=== PATIENT | female | born 1955 ===

== ENCOUNTER 2016-06-25 16:12 | Emergency (ER) | payer OTHER ==
[2016-06-25 16:19] VITALS: RESP 16; O2SAT 100
[2016-06-25 17:22] LABS: BASO % 0.7 % (0.0-2.0); EOS % 0.5 % (0.0-4.0); HEMATOCRIT 40.2 % (34.0-47.0); LYMPH # 1.4 K/uL (1.0-4.3); LYMPH % 18.5 % (20.0-40.0); MEAN CELL VOLUME 88.2 fl (81.0-99.0); MEAN CORPUSCULAR HEMOGLOBIN 29.1 pg (27.0-31.0); MONO # 0.4 K/uL (0.0-0.8); MONO % 5.9 % (0.0-10.0); NEUT # 5.6 K/uL (1.8-7.0); NEUT % 74.4 % (50.0-75.0); RED CELL DISTRIBUTION WIDTH 13.9 % (11.5-14.5); WHITE BLOOD COUNT 7.5 K/uL (4.8-10.8)
--- NOTE | 2016-06-25 17:23 | ED PDOC ---
HPI: Abdomen Time Seen by Provider: 06/25/16 16:32 Chief Complaint (Nursing): Abdominal Pain Chief Complaint (Provider): Abdominal Pain History Per: Patient History/Exam Limitations: no limitations Onset/Duration Of Symptoms: Days Current Symptoms Are (Timing): Still Present Severity: Mild Location Of Pain/Discomfort: RUQ Quality Of Discomfort: "Pain" Associated Symptoms: Chills, Nausea, Vomiting, Diarrhea, Loss Of Appetite. denies: Fever Exacerbating Factors: None Alleviating Factors: None Additional Complaint(s): Patient is a 61 year old female who presents to ED for evaluation of right sided abdominal pain, intermittent for 3 weeks. Patient notes pain is more severe in the last 2 days, associated now with vomiting (non bloody and non bilious) diarrhea (non bloody)and poor appetite. Patient reports that this morning she had 2 syncopal episodes, both in the bathroom while vomiting. As per , patient syncopized the first time for 30 seconds and the second for only a few seconds. Patient also complaining of dizziness, lightheadedness and chills. Denies urinary changes or fever. Past Medical History Reviewed: Historical Data Vital Signs: Last Vital Signs Temp 98.1 F 06/25/16 21:28 Pulse 75 06/25/16 21:28 Resp 16 06/25/16 21:28 BP 125/80 06/25/16 21:28 Pulse Ox 100 06/25/16 21:28 - Medical History PMH: Asthma Denies: HTN (Patient denies although previous chart show HTN history) - Surgical History Other surgeries: tubleligation - Family History Family History: States: Unknown Family Hx - Living Arrangements Living Arrangements: With Family - Home Medications Home Medications: Ambulatory Orders Medication Instructions Recorded traMADol [Ultram] 50 mg PO Q6H PRN #15 tab 09/09/14 Dicyclomine [Bentyl] 20 mg PO BID PRN #30 tab 06/25/16 Omeprazole Magnesium [Prilosec Otc] 20 mg PO DAILY #30 tcp 06/25/16 - Allergies Allergies/Adverse Reactions: Allergies Allergy/AdvReac Type Severity Reaction Status Date / Time ketorolac Allergy RASH Verified 06/25/16 16:16 Review of Systems ROS Statement: Except As Marked, All Systems Reviewed And Found Negative Constitutional: Positive for: Chills. Negative for: Fever Cardiovascular: Negative for: Chest Pain, Palpitations Respiratory: Negative for: Shortness of Breath Gastrointestinal: Positive for: Nausea, Vomiting, Abdominal Pain, Diarrhea. Negative for: Hematochezia, Hematemesis Genitourinary Female: Negative for: Dysuria, Frequency, Hematuria Musculoskeletal: Negative for: Back Pain Skin: Negative for: Rash Neurological: Positive for: Dizziness. Negative for: Weakness, Numbness Physical Exam - Reviewed Nursing Documentation Reviewed: Yes Vital Signs Reviewed: Yes - Physical Exam Appears: Positive for: Non-toxic (tired appearing), No Acute Distress Skin: Positive for: Normal Color, Warm Eye Exam: Positive for: Normal appearance Neck: Positive for: Normal, Painless ROM Cardiovascular/Chest: Positive for: Regular Rate, Rhythm. Negative for: Murmur Respiratory: Positive for: Normal Breath Sounds. Negative for: Respiratory Distress Gastrointestinal/Abdominal: Positive for: Soft, Tenderness (RUQ (-) [place] ). Negative for: Distended, Guarding, Rebound Back: Positive for: Normal Inspection. Negative for: L CVA Tenderness, R CVA Tenderness Extremity: Positive for: Normal ROM Neurologic/Psych: Positive for: Alert, Oriented - Laboratory Results Result Diagrams: 06/25/16 16:50 06/25/16 16:50 - ECG O2 Sat by Pulse Oximetry: 100 (RA) Pulse Ox Interpretation: Normal Medical Decision Making Medical Decision Making: Time:1630 Impression: Abdominal pain Differential diagnosis: cholelithiasis, cholecystitis, hepatitis, pancreatitis, dehydration, electrolyte abnormality. Plan: -- EKG -- CMP -- Lact acid -- Lipase -- Magnesium -- Phosphorous -- Troponin -- Urine dip -- CBC -- PT/PTT -- Zofran -- Urine culture -- monitoring analyst -- Accucheck -- U/A -- U/S Labs unremarkable. Accession No. : [id number] Patient Name / ID : MELISSA PERSON / [id number] Exam Date : 06/25/2016 17:20:14 ( Approved ) Study Comment : Sex / Age : F / 61Y Creator : Nikolai Fink MD Dictator : Nikolai Fink MD Soldering Machine Tender : Center Administrator : Nikolai Fink MD Approver2 : Report Date : 06/25/2016 18:44:12 My Comment : HISTORY: abdominal pain COMPARISON: None. TECHNIQUE: Sonographic evaluation of the abdomen. FINDINGS: LIVER: Measures cm. Increased echogenicity of the liver parenchyma. Focal area of fatty sparing near the melodie hepatis measuring 4 centimeters. GALLBLADDER: Unremarkable. No gallstones. COMMON BILE DUCT: Measures mm. No stones. No dilatation. PANCREAS: Unremarkable as visualized. No mass. No ductal dilatation. RIGHT KIDNEY: Measures cm. Normal echogenicity. No calculus, mass, or hydronephrosis. LEFT KIDNEY: Measures cm. Normal echogenicity. No calculus, mass, or hydronephrosis. SPLEEN: Normal in size and contour. No mass. AORTA: No aneurysmal dilatation. IVC: Unremarkable. OTHER FINDINGS: None. IMPRESSION: Fatty liver. EXAM: CT Abdomen and Pelvis With Intravenous Contrast CLINICAL HISTORY: 61 years old, female; Pain; Abdominal pain; Localized; Right; Prior surgery; Surgery date: 6+ months; Surgery type: Tubal ligation; Additional info: Right sided abdominal pain TECHNIQUE: Axial computed tomography images of the abdomen and pelvis with intravenous contrast. This CT exam was performed using one or more of the following dose reduction techniques : automated exposure control, adjustment of the mA and/or kV according to patient size, and/ or use of iterative reconstruction technique. Coronal and sagittal reformatted images were created and reviewed. CONTRAST: 90 mL of [id number] administered intravenously. EXAM DATE/TIME: 06/25/2016 7:31 PM COMPARISON: US - ABDOMEN COMPLETE 06/25/2016 5:20:14 PM FINDINGS: Lower thorax: No acute findings. ABDOMEN: Liver: The liver is diffusely decreased in density, compatible with hepatic steatosis. Gallbladder and bile ducts: The gallbladder is unremarkable. No biliary ductal dilatation. Pancreas: The pancreas is unremarkable. Spleen: The spleen is unremarkable. Adrenals: The adrenal glands are unremarkable. Kidneys and ureters: Symmetric renal enhancement without hydronephrosis. Right renal subcentimeter hypodensity is too small to characterize. Stomach and bowel: No evidence of bowel obstruction. No pericolonic inflammatory stranding. Appendix: A normal appendix is identified. PELVIS: Bladder: No focal wall thickening of the urinary bladder. Reproductive: Uterus is unremarkable. No suspicious adnexal lesion seen. ABDOMEN and PELVIS: Intraperitoneal space: No significant peritoneal free fluid. No free peritoneal air. Bones/joints: No acute osseous abnormality. Soft tissues: There is a small fat-containing umbilical hernia. Vasculature: No acute findings. No abdominal aortic aneurysm. Lymph nodes: No enlarged lymph nodes. IMPRESSION: No acute findings. Thank you for allowing us to participate in the care of your patient. Dictated and Authenticated by: Shay Lozano MD 06/25/2016 8:07 PM Eastern Time ([place] & [place]) On reevaluation pt feeling better. DW pt findings and plan of care. She has appointment with Dr Salinas Saturday. Advised bland diet with fluid and symptomatic meds until reeval with PMD. Scribe Attestation: Documented by Claudia Zuñiga acting as a scribe for Nicole Rizzo MD. Scribe Attestation: All medical record entries made by the Scribe were at my direction and personally dictated by me. I have reviewed the chart and agree that the record accurately reflects my personal performance of the history, physical exam, medical decision making, and the department course for this patient. I have also personally directed, reviewed, and agree with the discharge instructions and disposition. Disposition - Clinical Impression Clinical Impression: Abdominal pain Counseled Patient/Family Regarding: Studies Performed - Disposition Referrals: Conrad Salinas MD [Staff Provider] - Disposition: Routine/Home Disposition Time: 21:00 Condition: GOOD Additional Instructions: BLANDITO COMIDO Y BASHIR MUCHOS LIQUIDOS AYLA MEDICINAS A RECETO Prescriptions: Dicyclomine [Bentyl] 20 mg PO BID PRN #30 tab PRN Reason: abdominal pain Omeprazole Magnesium [Prilosec Otc] 20 mg PO DAILY #30 tcp Instructions: Acute Abdominal Pain (ED) Forms: [facility] ED School/Work Excuse Print Language: DOMINICAN
[2016-06-25 17:32] LABS: ALB/GLOB RATIO 1.3 (1.0-2.1); ALKALINE PHOSPHATASE 77 U/L (38-126); ALT/SGPT 40 U/L (9-52); AST/SGOT 30 U/L (14-36); BILIRUBIN,TOTAL 1.7 mg/dl (0.2-1.3); BLOOD UREA NITROGEN 14 mg/dl (7-17); CALCIUM 9.5 mg/dL (8.4-10.2); CARBON DIOXIDE 23 mmol/L (22-30); CHLORIDE 107 mmol/L (98-107); GFR AFRICAN-AMERICAN > 60; GLUCOSE,RANDOM 98 mg/dL (65-105); LIPASE 82 U/L (23-300); PHOSPHOROUS 3.7 mg/dl (2.5-4.5); POTASSIUM 3.8 MMOL/L (3.6-5.0); SODIUM 141 mmol/l (132-148); TOTAL PROTEIN 7.2 G/DL (6.3-8.2)
[2016-06-25 17:37] LABS: PARTIAL THROMBOPLASTIN TIME 24.7 SECONDS (23.3-32.5)
[2016-06-25 17:41] LABS: URINE BILIRUBIN NEGATIVE (NEGATIVE); URINE BLOOD NEGATIVE (NEGATIVE); URINE COLOR YELLOW (YELLOW); URINE GLUCOSE (UA) NEG (Normal); URINE KETONE NEGATIVE (NEGATIVE); URINE LEUKOCYTE ESTERASE TRACE Leu/uL (Negative); URINE PROTEIN NEGATIVE (NEGATIVE); URINE UROBILINOGEN 0.2-1.0 mg/dL (0.2-1.0); WBC URINE 5 /hpf (0-5)
--- NOTE | 2016-06-25 18:45 | US ---
HISTORY: abdominal pain COMPARISON: None. TECHNIQUE: Sonographic evaluation of the abdomen. FINDINGS: LIVER: Measures cm. Increased echogenicity of the liver parenchyma. Focal area of fatty sparing near the melodie hepatis measuring 4 centimeters. GALLBLADDER: Unremarkable. No gallstones. COMMON BILE DUCT: Measures mm. No stones. No dilatation. PANCREAS: Unremarkable as visualized. No mass. No ductal dilatation. RIGHT KIDNEY: Measures cm. Normal echogenicity. No calculus, mass, or hydronephrosis. LEFT KIDNEY: Measures cm. Normal echogenicity. No calculus, mass, or hydronephrosis. SPLEEN: Normal in size and contour. No mass. AORTA: No aneurysmal dilatation. IVC: Unremarkable. OTHER FINDINGS: None. IMPRESSION: Fatty liver.
[2016-06-25] MEDS ORDERED: Sodium Chloride 0.9% 50 ML IV ONE (19:19)
[2016-06-25] MEDS ORDERED: Iohexol 300 100 ML IJ ONE (19:19)
[2016-06-25 21:29] VITALS: BP 125/80; PULSE 75; TEMP 98.1
--- NOTE | 2016-06-26 07:17 | CARD ---
APPROVED REPORT EKG Measurement Heart [id number] <Conclusion> Sinus bradycardia Otherwise normal ECG
--- NOTE | 2016-06-26 10:47 | CT ---
PROCEDURE: CT Abdomen and Pelvis with contrast HISTORY: RIGHT sided abdominal pain COMPARISON: None. TECHNIQUE: Axial and reformatted coronal and sagittal CT images lumen pelvis were obtained after IV contrast administration. Contrast dose: 90 mL of Omnipaque 300 Radiation dose: Total exam DLP = 476.7 mGy-cm. This CT exam was performed using one or more of the following dose reduction techniques: Automated exposure control, adjustment of the mA and/or kV according to patient size, and/or use of iterative reconstruction technique. FINDINGS: LOWER THORAX: Unremarkable. LIVER: Unremarkable. No gross lesion or ductal dilatation. GALLBLADDER AND BILE DUCTS: Unremarkable. PANCREAS: Unremarkable. No gross lesion or ductal dilatation. SPLEEN: Unremarkable. ADRENALS: Unremarkable. No mass. KIDNEYS AND URETERS: Unremarkable. No hydronephrosis. No solid mass. VASCULATURE: Unremarkable. No aortic aneurysm. BOWEL: Unremarkable. No obstruction. No gross mural thickening. APPENDIX: Normal appendix. PERITONEUM: Unremarkable. No free fluid. No free air. LYMPH NODES: Unremarkable. No enlarged lymph nodes. BLADDER: Unremarkable. REPRODUCTIVE: Unremarkable. BONES: No acute fracture. OTHER FINDINGS: None. IMPRESSION: No CT evidence of acute pathology in the abdomen and pelvis. Preliminary report was submitted by virtual Radiology.
== END 2016-06-25 21:29 | disposition home or self-care (01) ==
LOC: H.ER 16:12
DX: B96.89 Other specified bacterial agents as the cause of diseases classified elsewhere (principal); K42.9 Umbilical hernia without obstruction or gangrene; K76.0 Fatty (change of) liver, not elsewhere classified; R11.2 Nausea with vomiting, unspecified; R42 Dizziness and giddiness; I10 Essential (primary) hypertension

== ENCOUNTER 2017-01-21 10:17 | Observation (INO) | payer BC, OTHER ==
[2017-01-21] MEDS ORDERED: Sodium Chloride 0.9% 1,000 ML IV STA (10:37)
[2017-01-21 10:58] LABS: BASO # 0.1 K/uL (0.0-0.2); BASO % 0.8 % (0.0-2.0); EOS % 0.7 % (0.0-4.0); HEMATOCRIT 38.7 % (34.0-47.0); LYMPH # 2.5 K/uL (1.0-4.3); LYMPH % 33.5 % (20.0-40.0); MEAN CELL VOLUME 87.3 fl (81.0-99.0); MEAN CORPUSCULAR HGB CONC 33.2 g/dL (33.0-37.0); MEAN PLATELET VOLUME 9.9 fl (7.2-11.7); MONO # 0.5 K/uL (0.0-0.8); MONO % 7.2 % (0.0-10.0); NEUT # 4.2 K/uL (1.8-7.0); NEUT % 57.8 % (50.0-75.0); NRBC % 0.1 % (0.0-0.0); PARTIAL THROMBOPLASTIN TIME 29.3 Seconds (25.6-37.1); RED CELL DISTRIBUTION WIDTH 13.6 % (11.5-14.5); WHITE BLOOD COUNT 7.3 K/uL (4.8-10.8)
[2017-01-21 11:07] LABS: ALB/GLOB RATIO 1.5 (1.0-2.1); ALKALINE PHOSPHATASE 64 U/L (38-126); ALT/SGPT 35 U/L (9-52); AST/SGOT 20 U/L (14-36); BILIRUBIN,TOTAL 1.7 mg/dl (0.2-1.3); BLOOD UREA NITROGEN 18 mg/dl (7-17); CALCIUM 9.2 mg/dL (8.4-10.2); CARBON DIOXIDE 25 mmol/L (22-30); CHLORIDE 108 mmol/L (98-107); GFR AFRICAN-AMERICAN > 60; GLUCOSE,RANDOM 123 mg/dL (65-105); POTASSIUM 3.5 MMOL/L (3.6-5.0); SODIUM 143 mmol/l (132-148); TOTAL PROTEIN 6.9 G/DL (6.3-8.2)
[2017-01-21] MEDS ORDERED: Potassium Chloride 20 mEq ER Tab PO STA (11:12)
--- NOTE | 2017-01-21 11:16 | ED PDOC ---
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 Patient sat on a chair and witnesses report the patient had a blank stare on her face. RESEARCH TECH was called and the patient was brought to the ER for evaluation. Upon interview, patient states she felt as if the room was spinning and feels generalized weakness. She reports she remembers the entire incident. She denies any headache, chest pain, shortness of breath, paresthesias, focal weaknesses. Patient has no other medical complaints. Past Medical History Reviewed: Historical Data, Nursing Documentation, Vital Signs Vital Signs: Last Vital Signs Temp 98.2 F 01/21/17 10:23 Pulse 80 01/21/17 10:23 Resp 16 01/21/17 10:23 BP 78/41 L 01/21/17 10:23 Pulse Ox 100 01/21/17 10:23 - Medical History PMH: Asthma Denies: HTN (Patient denies although previous chart show HTN history) - Surgical History Surgical History: No Surg Hx - Family History Family History: States: No Known Family Hx, Unknown Family Hx - Social History Current smoker - smoking cessation education provided: No Ex-Smoker (has not smoked in the last 12 months): No Alcohol: None Drugs: Denies - Home Medications Home Medications: Ambulatory Orders Medication Instructions Recorded traMADol [Ultram] 50 mg PO Q6H PRN #15 tab 09/09/14 Dicyclomine [Bentyl] 20 mg PO BID PRN #30 tab 06/25/16 Omeprazole Magnesium [Prilosec Otc] 20 mg PO DAILY #30 tcp 06/25/16 - Allergies Allergies/Adverse Reactions: Allergies Allergy/AdvReac Type Severity Reaction Status Date / Time ketorolac Allergy RASH Verified 06/25/16 16:16 Review of Systems ROS Statement: Except As Marked, All Systems Reviewed And Found Negative Cardiovascular: Negative for: Chest Pain Respiratory: Negative for: Shortness of Breath Neurological: Positive for: Weakness, Dizziness. Negative for: Other (focal deficits) Physical Exam - Reviewed Nursing Documentation Reviewed: Yes Vital Signs Reviewed: Yes - Physical Exam Appears: Positive for: Non-toxic Head Exam: Positive for: ATRAUMATIC, NORMAL INSPECTION, NORMOCEPHALIC Eye Exam: Positive for: Normal appearance, EOMI, PERRL, Nystagmus (horizontal) Neck: Positive for: Normal, Painless ROM, Supple Cardiovascular/Chest: Positive for: Regular Rate, Rhythm Respiratory: Positive for: Normal Breath Sounds. Negative for: Respiratory Distress Extremity: Positive for: Normal ROM. Negative for: Deformity, Swelling Neurologic/Psych: Positive for: Alert, Oriented. Negative for: Motor/Sensory Deficits - Laboratory Results Result Diagrams: 01/21/17 10:43 01/21/17 10:43 - ECG O2 Sat by Pulse Oximetry: 100 (RA) Pulse Ox Interpretation: Normal Medical Decision Making Medical Decision Making: Time: 1036 Impression: Dizziness, vertigo Plan: -- CT Head w/o contrast -- Meclizine 50mg PO -- KDur 20meq PO -- IV Fluids -- Labs Reassess Time: 1200 CT Head FINDINGS: HEMORRHAGE: No intracranial hemorrhage. BRAIN: Diffuse atrophy with prominence of the ventricles and sulci noted. No mass effect or edema. Intracranial vascular calcifications. Scattered white matter hypodensities, which are nonspecific, but often seen with chronic microvascular ischemic disease. Please note that MRI with diffusion imaging is more sensitive in the detection of acute ischemic event. VENTRICLES: No hydrocephalus. CALVARIUM: Unremarkable. PARANASAL SINUSES: Partial opacification of the left sphenoid sinus. MASTOID AIR CELLS: Unremarkable as visualized. No inflammatory changes. OTHER FINDINGS: None. IMPRESSION: Generalized atrophy. Nonspecific white matter changes. Partial opacification of the left sphenoid sinus. Correlate clinically for sinusitis. Scribe Attestation: Documented by Estee Monique acting as a scribe for Daay Akhtar MD. Provider Attestation: All medical record entries made by the Scribe were at my direction and personally dictated by me. I have reviewed the chart and agree that the record accurately reflects my personal performance of the history, physical exam, medical decision making, and the department course for this patient. I have also personally directed, reviewed, and agree with the discharge instructions and disposition. Disposition - Disposition Forms: [employer] ([employer])
--- NOTE | 2017-01-21 11:21 | CT ---
PROCEDURE: CT HEAD WITHOUT CONTRAST. HISTORY: Syncope COMPARISON: CT Head with/without contrast performed 10/10/16 TECHNIQUE: Axial computed tomography images were obtained through the head/brain without intravenous contrast. Radiation dose: Total exam DLP = 772.82 mGy-cm. This CT exam was performed using one or more of the following dose reduction techniques: Automated exposure control, adjustment of the mA and/or kV according to patient size, and/or use of iterative reconstruction technique. FINDINGS: HEMORRHAGE: No intracranial hemorrhage. BRAIN: Diffuse atrophy with prominence of the ventricles and sulci noted. No mass effect or edema. Intracranial vascular calcifications. Scattered white matter hypodensities, which are nonspecific, but often seen with chronic microvascular ischemic disease. Please note that MRI with diffusion imaging is more sensitive in the detection of acute ischemic event. VENTRICLES: No hydrocephalus. CALVARIUM: Unremarkable. PARANASAL SINUSES: Partial opacification of the left sphenoid sinus. MASTOID AIR CELLS: Unremarkable as visualized. No inflammatory changes. OTHER FINDINGS: None. IMPRESSION: Generalized atrophy. Nonspecific white matter changes. Partial opacification of the left sphenoid sinus. Correlate clinically for sinusitis.
[2017-01-21] MEDS ORDERED: Potassium Chloride 20 mEq ER Tab PO ONE (11:32)
--- NOTE | 2017-01-21 11:54 | RAD ---
HISTORY: Syncope COMPARISON: Chest x-ray performed 07/02/16 TECHNIQUE: Chest, one view. FINDINGS: LUNGS: Biapical pleural thickening. No focal consolidation. Please note that chest x-ray has limited sensitivity for the detection of pulmonary masses. PLEURA: No significant pleural effusion identified. No definite pneumothorax . CARDIOVASCULAR: Heart size appears with normal limits. Atherosclerotic calcifications the aorta. OSSEOUS STRUCTURES: Degenerative changes of the spine. VISUALIZED UPPER ABDOMEN: Unremarkable. OTHER FINDINGS: None. IMPRESSION: Biapical pleural thickening.
--- NOTE | 2017-01-21 13:29 | CP.PCM.HP ---
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 Patient states she felt lightheaded and did not feel well and subsequently sat down to 2 dizziness. Dizziness is moderate to severe, acute onset, not evaluated by anything, and associated with diaphoresis. Patient denies any chest pain or dyspnea. Patient had also been worked up for this approximately 3 months ago which included head CT and carotid Dopplers. We will obtain MRI and MRA of head and neck to rule out vertebral basilar insufficiency as well as any other acute pathology. She is hemodynamically stable in no acute distress. Review systems per HPI all other systems reviewed and negative by me Past medical history: Denies Past surgical history: Denies Family history: Denies Social history: Denies tobacco, alcohol, IV drug use Medications: Bentyl, tramadol, Prilosec Allergies: Toradol Vitals stable Constitutional- cooperative, awake, alert. Head- NCAT, PERRL Eye- PERRL, normal accommodation ENT- normal exam, MMM. 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 Patient states she felt lightheaded and did not feel well and subsequently sat down to 2 dizziness. Dizziness is moderate to severe, acute onset, not evaluated by anything, and associated with diaphoresis. Patient denies any chest pain or dyspnea. Patient had also been worked up for this approximately 3 months ago which included head CT and carotid Dopplers. We will obtain MRI and MRA of head and neck to rule out vertebral basilar insufficiency as well as any other acute pathology. She is hemodynamically stable in no acute distress. Recurrent near syncope, vertigo Azotemia Patient was administered a liter of fluids Clinically improving however continues to have vertigo, unable to ambulate Monitor patient on telemetry Obtain MRI and MRA head and neck to rule out vertebrobasilar insufficiency Continue meclizine Prior head CT and carotid dopplers have been negative Present on Admission - Present on Admission Any Indicators Present on Admission: No Past Patient History - Past Social History Alcohol: None Drugs: Denies - CARDIAC Hx Hypertension: No (Patient denies although previous chart show HTN history) - PULMONARY Hx Asthma: Yes - PSYCHIATRIC Hx Substance Use: No - SURGICAL HISTORY Hx Tubal Ligation: Yes - ANESTHESIA Hx Anesthesia: Yes Hx Anesthesia Reactions: No Meds Allergies/Adverse Reactions: Allergies Allergy/AdvReac Type Severity Reaction Status Date / Time ketorolac Allergy RASH Verified 06/25/16 16:16 Results - Vital Signs Recent Vital Signs: Last Vital Signs Temp 98.2 F 01/21/17 10:23 Pulse 61 01/21/17 11:45 Resp 16 01/21/17 11:45 BP 111/64 01/21/17 11:45 Pulse Ox 100 01/21/17 12:01 - Labs Result Diagrams: 01/21/17 10:43 01/21/17 10:43 Labs: Laboratory Results - last 24 hr 01/21/17 01/21/17 01/21/17 10:43 10:43 10:43 WBC 7.3 RBC 4.43 Hgb 12.8 Hct 38.7 MCV 87.3 MCH 29.0 MCHC 33.2 RDW 13.6 Plt Count 181 MPV 9.9 Neut % (Auto) 57.8 Lymph % (Auto) 33.5 [place] % (Auto) 7.2 Eos % (Auto) 0.7 Baso % (Auto) 0.8 Neut # 4.2 Lymph # 2.5 [place] # 0.5 Eos # 0.0 Baso # 0.1 PT 11.6 INR 1.0 APTT 29.3 Sodium 143 Potassium 3.5 L Chloride 108 H Carbon Dioxide 25 Anion Gap 14 BUN 18 H Creatinine 0.9 Est GFR ( Amer) > 60 Est GFR (Non-Af Amer) > 60 Random Glucose 123 H Calcium 9.2 Total Bilirubin 1.7 H AST 20 ALT 35 Alkaline Phosphatase 64 Troponin I < 0.0120 Total Protein 6.9 Albumin 4.2 Globulin 2.8 Albumin/Globulin Ratio 1.5
[2017-01-21 14:50] LABS: RBC URINE < 1 /hpf (0-3); URINE BILIRUBIN NEGATIVE (NEGATIVE); URINE BLOOD NEGATIVE (NEGATIVE); URINE COLOR YELLOW (YELLOW); URINE GLUCOSE (UA) NEG (Normal); URINE KETONE TRACE mg/dL (NEGATIVE); URINE LEUKOCYTE ESTERASE NEG Leu/uL (Negative); URINE PROTEIN NEGATIVE (NEGATIVE); URINE UROBILINOGEN 0.2-1.0 mg/dL (0.2-1.0); WBC URINE 2 /hpf (0-5)
[2017-01-22 00:56] VITALS: RESP 18
[2017-01-22 05:43] LABS: HEMATOCRIT 39.8 % (34.0-47.0); MEAN CELL VOLUME 89.2 fl (81.0-99.0); MEAN CORPUSCULAR HEMOGLOBIN 29.1 pg (27.0-31.0); MEAN CORPUSCULAR HGB CONC 32.6 g/dL (33.0-37.0); RED CELL DISTRIBUTION WIDTH 13.7 % (11.5-14.5)
[2017-01-22 06:08] LABS: BLOOD UREA NITROGEN 16 mg/dl (7-17); CALCIUM 8.9 mg/dL (8.4-10.2); CARBON DIOXIDE 28 mmol/L (22-30); CHLORIDE 111 mmol/L (98-107); GFR AFRICAN-AMERICAN > 60; GLUCOSE,RANDOM 93 mg/dL (65-105); POTASSIUM 4.8 MMOL/L (3.6-5.0); SODIUM 145 mmol/l (132-148)
[2017-01-22] MEDS: Enoxaparin 40 mg Syringe SC SCH ×2 (09:06→09:07)
--- NOTE | 2017-01-22 10:18 | MRI ---
PROCEDURE: MRI BRAIN WITHOUT CONTRAST HISTORY: recurrent syncope/vertigo, r/o vertibrobasilar ins COMPARISON: None. TECHNIQUE: Multiplanar, multisequence MR images of the brain were obtained without intravenous contrast enhancement. FINDINGS: HEMORRHAGE: None DWI: No evidence of an acute or early subacute infarction. BRAIN PARENCHYMA: Diffuse cerebral atrophy and chronic microangiopathy are reiterated. No mass is identified or suspicious extra-axial fluid collection in the midline brain and appears diffusely unremarkable nevertheless. Posterior fossa contents remain unremarkable including the brainstem. VENTRICLES: Unremarkable. No hydrocephalus. CRANIUM: Unremarkable. ORBITS: Grossly unremarkable. PARANASAL SINUSES/MASTOIDS: Left sphenoid sinusitis again identified. VASCULAR SYSTEM: Skull base flow voids intact. OTHER FINDINGS: None. IMPRESSION: Reiteration of limited age-related neuro degenerative changes without definite acute or subacute brain infarction appreciated this time. No suspicious interval change greater prior head CT 01/21/2017.
--- NOTE | 2017-01-22 10:26 | MRI ---
PROCEDURE: Magnetic Resonance Angiography Brain HISTORY: recurrent syncope/vertigo, r/o vertibrobasilar ins COMPARISON: None available. TECHNIQUE: 3D time of flight MR angiography of the intracranial arteries was performed. Rotating maximum intensity projection images were generated. FINDINGS: INTERNAL CAROTID ARTERIES: Unremarkable. The skull base, petrous, cavernous and supraclinoid segments are bilaterally widely patient. ANTERIOR CEREBRAL ARTERIES: Unremarkable. A1 and A2 segments are widely patent. Smaller distal branches unremarkable, as visualized. MIDDLE CEREBRAL ARTERIES: Unremarkable. M1 and M2 segments are widely patent. Perisylvian branches grossly symmetric. POSTERIOR CIRCULATION: Basilar Artery: Unremarkable. Distal Vertebral Arteries: Unremarkable. Posterior Cerebral Arteries: Unremarkable. Posterior Inferior Cerebellar Arteries: Right PICA appears unremarkable. Left PICA not clearly identified. ANEURYSM/ VASCULAR MALFORMATIONS: None. OTHER FINDINGS: None. IMPRESSION: Unremarkable MR angiography of the brain.
--- NOTE | 2017-01-22 10:29 | MRI ---
PROCEDURE: MR Angiography of the neck without contrast HISTORY: recurrent syncope/vertigo, r/o vertibrobasilar ins COMPARISON: None available. TECHNIQUE: 3D [id number] angiography of the neck was performed. Rotating maximum intensity projection images of the cervical carotid and vertebral arteries were generated. The origins of the common carotid arteries were not visualized, which is a limitation inherent to the non-contrast time of flight technique. FINDINGS: RIGHT CAROTID ARTERIES: Common Carotid Artery: Normal. Carotid Bifurcation: Normal. Internal Carotid Artery:Normal. External Carotid Artery (proximal branches): Normal. LEFT CAROTID ARTERIES: Common Carotid Artery: Normal. Carotid Bifurcation: Normal. Internal Carotid Artery:Grossly ectatic at its midportion though widely patent throughout. External Carotid Artery (proximal branches): Normal. VERTEBRAL ARTERIES: Right Vertebral Artery: Widely patent though ectatic. Left Vertebral Artery: Widely patent though ectatic. OTHER FINDINGS: None. IMPRESSION: No significant common or internal carotid stenosis bilaterally. Ectatic left internal carotid and bilateral vertebral arteries are identified.
--- NOTE | 2017-01-22 10:55 | CARD ---
APPROVED REPORT EKG Measurement Heart [id number] <Conclusion> Normal sinus rhythm with sinus arrhythmia Normal ECG
--- NOTE | 2017-01-22 11:09 | CARD ---
APPROVED REPORT EXAM: Two-dimensional and M-mode echocardiogram with Doppler and color Doppler. Other Information Quality : GoodRhythm : NSR INDICATION Syncope 2D DIMENSIONS IVSd0.68 (0.7-1.1cm)LVDd4.46 (3.9-5.9cm) LVOT Diameter1.90 (1.8-2.4cm)PWd0.84 (0.7-1.1cm) IVSs0.76 (0.8-1.2cm)LVDs3.15 (2.5-4.0cm) FS (%) 29.4 %PWs0.85 (0.8-1.2cm) M-Mode DIMENSIONS Left Atrium (MM)3.09 (2.5-4.0cm)IVSd0.69 (0.7-1.1cm) Aortic Root2.73 (2.2-3.7cm)LVDd5.74 (4.0-5.6cm) Aortic Cusp Exc.1.57 (1.5-2.0cm)PWd0.83 (0.7-1.1cm) IVSs1.52 cmFS (%) 50 % LVDs2.87 (2.0-3.8cm)PWs1.38 cm Mitral Valve MV E Obvjxgjk99.4cm/sMV DECEL [id number] A Ykncxcbs35.9cm/s MV NDL50xwA/A ratio1.1MVA (PHT)3.13cm2 TDI Lateral E' Peak V12.06cm/sMedial E' Peak V10.02cm/sE/Lateral E'5.7 E/Medial E'6.8 Pulmonary Valve PV Peak Nbgrqkwy571.1cm/s Tricuspid Valve TR Peak Rwgasnvv318rg/sRAP ZXFWSEGM32wrSgSE Peak Gr.25mmHg [id number] LEFT VENTRICLE The left ventricle is normal size. There is normal left ventricular wall thickness. The left ventricular function is normal. The left ventricular ejection fraction is within the normal range. The Ejection Fraction is 50-55%. There is normal LV segmental wall motion. The left ventricular diastolic function is normal. No left ventricle thrombus noted on this study. There is no mass noted in the left ventricle. RIGHT VENTRICLE The right ventricle is normal size. There is normal right ventricular wall thickness. The right ventricular systolic function is normal. ATRIA The left atrium size is normal. The right atrium size is normal. The interatrial septum is intact with no evidence for an atrial septal defect. AORTIC VALVE The aortic valve is normal in structure. No aortic regurgitation is present. There is no aortic valvular stenosis. There is no aortic valvular vegetation. MITRAL VALVE The mitral valve is normal in structure. There is no evidence of mitral valve prolapse. There is no mitral valve stenosis. There is no mitral valve regurgitation noted. TRICUSPID VALVE The tricuspid valve is normal in structure. There is no tricuspid valve regurgitation noted. There is no tricuspid valve prolapse or vegetation. There is no tricuspid valve stenosis. PULMONIC VALVE The pulmonary valve is normal in structure. There is no pulmonic valvular regurgitation. There is no pulmonic valvular stenosis. GREAT VESSELS The aortic root is normal in size. The IVC is normal in size and collapses >50% with inspiration. PERICARDIAL EFFUSION The pericardium appears normal. There is no pleural effusion. <Conclusion> The left ventricle is normal size. The left ventricular function is normal. The left ventricular ejection fraction is within the normal range. The Ejection Fraction is 50-55%.
[2017-01-22 11:41] VITALS: PULSE 53
[2017-01-22 12:06] VITALS: BP 165/79; TEMP 97; O2SAT 98
--- NOTE | 2017-01-22 12:53 | CP.PCM.CON ---
History of Present Illness - History of Present Illness History of Present Illness: Mrs. Dsouza is a 61-year-old woman with no significant past medical history, who states that she has had two prior episodes of loss of consciousness and syncope. 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 She had filled two bags, and tied them, and was then working on the 3rd back when she bent down and felt light- headed. She needed to sit down, and walked away to do that, but then she lost consciousness and syncopized. An [facility] MATCHER was called and the patient was taken to the ED, where she woke up. She did not have any urinary/bowel incontinence, no abnormal shaking movements, and no tongue biting. MRI/MRA of the head/neck was normal. Labs are normal. EEG was done, and result is pending. The patient is back to baseline now with no residual deficits or complaints. Review of Systems - Review of Systems All systems: reviewed and no additional remarkable complaints except Past Patient History - Past Medical History & Family History Past Medical History?: Yes - Past Social History Smoking Status: Never Smoked - CARDIAC Hx Hypertension: No (Patient denies although previous chart show HTN history) - PULMONARY Hx Asthma: Yes - NEUROLOGICAL Hx Neurological Disorder: No - HEENT Hx HEENT Problems: No - RENAL Hx Chronic Kidney Disease: No - ENDOCRINE/METABOLIC Hx Endocrine Disorders: No - HEMATOLOGICAL/ONCOLOGICAL Hx Blood Disorders: No - INTEGUMENTARY Hx Dermatological Problems: No - MUSCULOSKELETAL/RHEUMATOLOGICAL Hx Musculoskeletal Disorders: No Hx Falls: No - GASTROINTESTINAL Hx Gastrointestinal Disorders: No - GENITOURINARY/GYNECOLOGICAL Hx Genitourinary Disorders: No - PSYCHIATRIC Hx Psychophysiologic Disorder: No Hx Substance Use: No - SURGICAL HISTORY Hx Surgeries: No Hx Tubal Ligation: Yes - ANESTHESIA Hx Anesthesia: No Hx Anesthesia Reactions: No Hx Malignant Hyperthermia: No Has any member of the family had a problem w/ anesthesia?: No Meds Allergies/Adverse Reactions: Allergies Allergy/AdvReac Type Severity Reaction Status Date / Time ketorolac Allergy RASH Verified 06/25/16 16:16 - Medications Medications: Current Medications Enoxaparin Sodium (Lovenox) 40 mg SC DAILY [facility] PRN Reason: Protocol Last Admin: 01/22/17 09:07 Dose: Not Given Meclizine HCl (Antivert) 25 mg PO BID [facility] Last Admin: 01/22/17 09:06 Dose: 25 mg Physical Exam - Constitutional Appears: Well - Eye Exam Eye Exam: EOMI, Normal appearance, PERRL - ENT Exam ENT Exam: Mucous Membranes Moist, Normal Exam - Neck Exam Neck exam: Positive for: Normal Inspection - Respiratory Exam Respiratory Exam: Clear to Auscultation Bilateral, NORMAL BREATHING PATTERN - Cardiovascular Exam Cardiovascular Exam: REGULAR RHYTHM, +S1, +S2 - GI/Abdominal Exam GI & Abdominal Exam: Normal Bowel Sounds, Soft. absent: Tenderness - Rectal Exam Rectal Exam: Deferred - Extremities Exam Extremities exam: Positive for: normal inspection - Back Exam Back exam: NORMAL INSPECTION - Neurological Exam Neurological exam: Alert, CN II-XII Intact, Normal Gait, Oriented x3, Reflexes Normal - Psychiatric Exam Psychiatric exam: Normal Affect, Normal Mood - Skin Skin Exam: Dry, Intact, Normal Color, Warm Results - Vital Signs Recent Vital Signs: Last Vital Signs Temp 97 F L 01/22/17 12:05 Pulse 53 L 01/22/17 12:05 Resp 18 01/22/17 12:05 BP 165/79 H 01/22/17 12:05 Pulse Ox 98 01/22/17 12:05 - Labs Result Diagrams: 01/22/17 04:20 01/22/17 04:20 Labs: Laboratory Results - last 24 hr 01/21/17 01/22/17 01/22/17 14:45 04:20 04:20 WBC 6.0 RBC 4.46 Hgb 13.0 Hct 39.8 MCV 89.2 MCH 29.1 MCHC 32.6 L RDW 13.7 Plt Count 150 Sodium 145 Potassium 4.8 Chloride 111 H Carbon Dioxide 28 Anion Gap 11 BUN 16 Creatinine 0.8 Est GFR ( Amer) > 60 Est GFR (Non-Af Amer) > 60 Random Glucose 93 Calcium 8.9 Urine Color Yellow Urine Clarity Clear Urine pH 8.0 Ur Specific [place] 1.012 Urine Protein Negative Urine Glucose (UA) Neg Urine Ketones Trace Urine Blood Negative Urine Nitrate Negative Urine Bilirubin Negative Urine Urobilinogen 0.2-1.0 Ur Leukocyte Esterase Neg Urine RBC (Auto) < 1 Urine Microscopic WBC 2 Ur Squamous Epith Cells < 1 Assessment & Plan (1) Syncope Assessment and Plan: Based on the history, this is likely neurocardiogenic in origin. However, it is possible that a central neurological etiology is present. There were no abnormalities on the MRI, making that less likely. I recommend referral to cardiology for placement of a loop recorded (LINQ). Furthermore, the patient should have prolonged EEG monitoring at a tertiary center. No further recommendations from a neurological standpoint at this time. Thank you for this consultation. Status: Acute Priority: High
--- NOTE | 2017-01-22 12:57 | CP.PCM.CON ---
History of Present Illness - History of Present Illness History of Present Illness: This 61 year old otherwise healthy female abruptly blacked out after a brief period of feeling unwell and woke up in the emergency room approximately 15-20 minutes later when she was brought there by her coworkers. The patient does not recall being transferred to a stretcher or being wheeled into the emergency room. She gives a history of a similar episode while visiting her brother in a hospital in which she had a strange sensation followed by a black out and she woke up 10-15 minutes later in the emergency room. She has had 3 such episodes within the last 10 months. There is no history of bowel or bladder control loss. She denies any palpitations or chest pain or sudden shortness of breath. There is no history of hypertension or diabetes. She has never been a smoker. Her only hospitalizations for childbirth. She is not taking any medications. Her weight has been stable. Physical examination shows a middle aged was an female sitting up in a chair alert awake and concordant. Afebrile. With a pulse rate which during sleep was between 45 and 52 and now while awake has been between 60 and 70 bpm. Her blood pressure 140/80 mmHg while sitting in the chair. Jugular venous pressure was not elevated and there was no edema over her lower extremity. Her pedal pulses were well felt and there were no carotid bruits. The apex was not palpable. The first and second heart sounds were normal. There was no murmur or gallop there were no rales. Her abdomen was soft and her liver and spleen are not palpable. Her electric cardiogram showed sinus rhythm with a normal EKG pattern. Her echocardiogram shows a normally functioning left ventricle with no evidence of valvular abnormalities. Her lab data was noted. Her hemoglobin and hematocrit as well as WBC count and platelet counts are normal. Her BUN/creatinine and electrolytes were normal. Her liver profile was normal. Impression: Syncopal episode most likely of neurological origin. Her cardiovascular examination as well as evaluation of her history does not suggest a cardiac etiology. Past Patient History - Past Medical History & Family History Past Medical History?: Yes - Past Social History Smoking Status: Never Smoked - CARDIAC Hx Hypertension: No (Patient denies although previous chart show HTN history) - PULMONARY Hx Asthma: Yes - NEUROLOGICAL Hx Neurological Disorder: No - HEENT Hx HEENT Problems: No - RENAL Hx Chronic Kidney Disease: No - ENDOCRINE/METABOLIC Hx Endocrine Disorders: No - HEMATOLOGICAL/ONCOLOGICAL Hx Blood Disorders: No - INTEGUMENTARY Hx Dermatological Problems: No - MUSCULOSKELETAL/RHEUMATOLOGICAL Hx Musculoskeletal Disorders: No Hx Falls: No - GASTROINTESTINAL Hx Gastrointestinal Disorders: No - GENITOURINARY/GYNECOLOGICAL Hx Genitourinary Disorders: No - PSYCHIATRIC Hx Psychophysiologic Disorder: No Hx Substance Use: No - SURGICAL HISTORY Hx Surgeries: No Hx Tubal Ligation: Yes - ANESTHESIA Hx Anesthesia: No Hx Anesthesia Reactions: No Hx Malignant Hyperthermia: No Has any member of the family had a problem w/ anesthesia?: No Meds Allergies/Adverse Reactions: Allergies Allergy/AdvReac Type Severity Reaction Status Date / Time ketorolac Allergy RASH Verified 06/25/16 16:16 - Medications Medications: Current Medications Enoxaparin Sodium (Lovenox) 40 mg SC DAILY [facility] PRN Reason: Protocol Last Admin: 01/22/17 09:07 Dose: Not Given Meclizine HCl (Antivert) 25 mg PO BID [facility] Last Admin: 01/22/17 09:06 Dose: 25 mg Results - Vital Signs Recent Vital Signs: Last Vital Signs Temp 97 F L 01/22/17 12:05 Pulse 53 L 01/22/17 12:05 Resp 18 01/22/17 12:05 BP 165/79 H 01/22/17 12:05 Pulse Ox 98 01/22/17 12:05 - Labs Result Diagrams: 01/22/17 04:20 01/22/17 04:20 Labs: Laboratory Results - last 24 hr 01/21/17 01/22/17 01/22/17 14:45 04:20 04:20 WBC 6.0 RBC 4.46 Hgb 13.0 Hct 39.8 MCV 89.2 MCH 29.1 MCHC 32.6 L RDW 13.7 Plt Count 150 Sodium 145 Potassium 4.8 Chloride 111 H Carbon Dioxide 28 Anion Gap 11 BUN 16 Creatinine 0.8 Est GFR ( Amer) > 60 Est GFR (Non-Af Amer) > 60 Random Glucose 93 Calcium 8.9 Urine Color Yellow Urine Clarity Clear Urine pH 8.0 Ur Specific [place] 1.012 Urine Protein Negative Urine Glucose (UA) Neg Urine Ketones Trace Urine Blood Negative Urine Nitrate Negative Urine Bilirubin Negative Urine Urobilinogen 0.2-1.0 Ur Leukocyte Esterase Neg Urine RBC (Auto) < 1 Urine Microscopic WBC 2 Ur Squamous Epith Cells < 1
--- NOTE | 2017-01-22 13:39 | CP.PCM.DIS ---
Provider - Provider Date of Admission: 01/21/17 13:21 Attending physician: Alona Delgadillo DO Primary care physician: Dr Salinas Consults: Cardio: Dr Johanny Carlson Neurology: Dr Malone Time Spent in preparation of Discharge (in minutes): 45 Diagnosis - Discharge Diagnosis (1) Syncope Status: Acute Priority: High (2) Seizure Status: Acute Hospital Course - Lab Results Lab Results: Most Recent Lab Values WBC 6.0 K/uL (4.8-10.8) 01/22/17 04:20 RBC 4.46 Mil/uL (3.80-5.20) 01/22/17 04:20 Hgb 13.0 g/dL (12.0-16.0) 01/22/17 04:20 Hct 39.8 % (34.0-47.0) 01/22/17 04:20 MCV 89.2 fl (81.0-99.0) 01/22/17 04:20 MCH 29.1 pg (27.0-31.0) 01/22/17 04:20 MCHC 32.6 g/dL (33.0-37.0) L 01/22/17 04:20 RDW 13.7 % (11.5-14.5) 01/22/17 04:20 Plt Count 150 K/uL (130-400) 01/22/17 04:20 MPV 9.9 fl (7.2-11.7) 01/21/17 10:43 Neut % (Auto) 57.8 % (50.0-75.0) 01/21/17 10:43 Lymph % (Auto) 33.5 % (20.0-40.0) 01/21/17 10:43 Amelia % (Auto) 7.2 % (0.0-10.0) 01/21/17 10:43 Eos % (Auto) 0.7 % (0.0-4.0) 01/21/17 10:43 Baso % (Auto) 0.8 % (0.0-2.0) 01/21/17 10:43 Neut # 4.2 K/uL (1.8-7.0) 01/21/17 10:43 Lymph # 2.5 K/uL (1.0-4.3) 01/21/17 10:43 Amelia # 0.5 K/uL (0.0-0.8) 01/21/17 10:43 Eos # 0.0 K/uL (0.0-0.7) 01/21/17 10:43 Baso # 0.1 K/uL (0.0-0.2) 01/21/17 10:43 PT 11.6 Seconds (9.8-13.1) 01/21/17 10:43 INR 1.0 (0.9-1.2) 01/21/17 10:43 APTT 29.3 Seconds (25.6-37.1) 01/21/17 10:43 Sodium 145 mmol/l (132-148) 01/22/17 04:20 Potassium 4.8 MMOL/L (3.6-5.0) 01/22/17 04:20 Chloride 111 mmol/L (98-107) H 01/22/17 04:20 Carbon Dioxide 28 mmol/L (22-30) 01/22/17 04:20 Anion Gap 11 (10-20) 01/22/17 04:20 BUN 16 mg/dl (7-17) 01/22/17 04:20 Creatinine 0.8 mg/dl (0.7-1.2) 01/22/17 04:20 Est GFR ( Amer) > 60 01/22/17 04:20 Est GFR (Non-Af Amer) > 60 01/22/17 04:20 Random Glucose 93 mg/dL (65-105) 01/22/17 04:20 Calcium 8.9 mg/dL (8.4-10.2) 01/22/17 04:20 Total Bilirubin 1.7 mg/dl (0.2-1.3) H 01/21/17 10:43 AST 20 U/L (14-36) 01/21/17 10:43 ALT 35 U/L (9-52) 01/21/17 10:43 Alkaline Phosphatase 64 U/L (38-126) 01/21/17 10:43 Troponin I < 0.0120 ng/mL (0.00-0.120) 01/21/17 10:43 Total Protein 6.9 G/DL (6.3-8.2) 01/21/17 10:43 Albumin 4.2 g/dL (3.5-5.0) 01/21/17 10:43 Globulin 2.8 gm/dL (2.2-3.9) 01/21/17 10:43 Albumin/Globulin Ratio 1.5 (1.0-2.1) 01/21/17 10:43 Urine Color Yellow (YELLOW) 01/21/17 14:45 Urine Clarity Clear (Clear) 01/21/17 14:45 Urine pH 8.0 (5.0-8.0) 01/21/17 14:45 Ur Specific [place] 1.012 (1.003-1.030) 01/21/17 14:45 Urine Protein Negative mg/dL (NEGATIVE) 01/21/17 14:45 Urine Glucose (UA) Neg mg/dL (Normal) 01/21/17 14:45 Urine Ketones Trace mg/dL (NEGATIVE) 01/21/17 14:45 Urine Blood Negative (NEGATIVE) 01/21/17 14:45 Urine Nitrate Negative (NEGATIVE) 01/21/17 14:45 Urine Bilirubin Negative (NEGATIVE) 01/21/17 14:45 Urine Urobilinogen 0.2-1.0 mg/dL (0.2-1.0) 01/21/17 14:45 Ur Leukocyte Esterase Neg [place]en[place]/uL (Negative) 01/21/17 14:45 Urine RBC (Auto) < 1 /hpf (0-3) 01/21/17 14:45 Urine Microscopic WBC 2 /hpf (0-5) 01/21/17 14:45 Ur Squamous Epith Cells < 1 /hpf (0-5) 01/21/17 14:45 - Hospital Course Hospital Course: 61 y/o lady , no significant PMH, was brought to the ED after a syncopal episode. Patient was admitted to Telemetry , cardiac monitoring showed occasional bradycardia during sleep ( 45-55/min). CT of the head was negative. Carotid Sono ,: no significant stenosis. MRI of the Brain and MRA of the head and neck were negative. Cardiology - DR Johanny Carlson consulted- felt syncope was neuro in etiology. Dr Malone Neurologist consulted . EEG done showed some Epileptiform charges. He recommended to start Keppra. Also recommended Loop recorder as outpatient. 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 Discharge Exam - Head Exam Head Exam: ATRAUMATIC, NORMAL INSPECTION, NORMOCEPHALIC - Eye Exam Eye Exam: EOMI, Normal appearance, PERRL Pupil Exam: NORMAL ACCOMODATION - ENT Exam ENT Exam: Mucous Membranes Moist, Normal External Ear Exam - Neck Exam Neck exam: Full Rom - Respiratory Exam Respiratory Exam: NORMAL BREATHING PATTERN. absent: Respiratory Distress - Cardiovascular Exam Cardiovascular Exam: REGULAR RHYTHM, +S1, +S2 - GI/Abdominal Exam GI & Abdominal Exam: Normal Bowel Sounds, Soft. absent: Tenderness - Extremities Exam Extremities exam: full ROM, normal capillary refill, pedal pulses present - Back Exam Back exam: FULL ROM. absent: CVA tenderness (L), CVA tenderness (R), paraspinal tenderness, vertebral tenderness - Neurological Exam Neurological exam: Alert, CN II-XII Intact, Normal Gait, Oriented x3, Reflexes Normal - Psychiatric Exam Psychiatric exam: Normal Affect, Normal Mood - Skin Skin Exam: Dry, Normal Color, Warm Discharge Plan - Discharge Medications Prescriptions: levETIRAcetam [Keppra] 500 mg PO BID #60 tab - Follow Up Plan Condition: GOOD Disposition: HOME/ ROUTINE Additional Instructions: appt with Cardiology and Neurology as outpt dhiraj for further work up Continous EEG monitoring will be done as outpt Ambulatory EEG (Loop Recorder ) referral Start keppra 500mg bid 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
--- NOTE | 2017-01-22 15:00 | PCM.EEG ---
Electroencephalogram Report - Electroencephalogram Report Procedure Date: 01/22/17 Interpretation: Indication: Syncope. Medications were reviewed. Technical: This is a digitally recorded electroencephalogram. The international 10-20 electrode placement system is used for scalp electrode placement. Eighteen channels of scalp EEG are recorded Another channel was used for for ECG. The data are stored digitally and reviewed in reformatted montages for optimal display. Background: 9 to 10 hertz alpha activity was seen. Maximal over the posterior head region. These activities are symmetric on both sides. They attenuated with eye opening. Small amount of beta activities are seen. There were two right temporal lobe sharp wave discharges noted. Impression: This EEG is abnormal. Epileptiform discharge was seen. This can represent a potential seizure focus. Clinical correlation is needed. Recommendation: Start Keppra 500 mg BID.
== END 2017-01-22 15:30 | disposition home or self-care (01) ==
LOC: H.ER 10:17 → H.ERHOLD 13:21 → H.TEL 17:26
PROVIDERS: ADMIT Student in an Organized Health Care Education/Training Program; ATTEND Student in an Organized Health Care Education/Training Program
DX: R55 Syncope and collapse (principal); R56.9 Unspecified convulsions; Z98.51 Tubal ligation status; R00.1 Bradycardia, unspecified; R42 Dizziness and giddiness; R79.89 Other specified abnormal findings of blood chemistry; I10 Essential (primary) hypertension; J45.909 Unspecified asthma, uncomplicated
CPT/HCPCS: 36415; 70450; 70544; 70547; 70551; 71010; 80048; 80053; 81003; 84484; 85025; 85027; 85610; 85730; 93005; 93306; 95816; 97161; 97165; 99285; G0378; G8978; G8979; G8980; G8987; G8988; G8989; J7040